=== PATIENT | female | born 1995 | race Caucasian/White ===

== ENCOUNTER 2016-11-18 19:21 | Emergency (ER) | payer OTHER ==
[2016-11-18] MEDS ORDERED: ONDANSETRON 4 MG/2 ML VIAL ONE (19:50)
[2016-11-18] MEDS: NS 1,000 ML IV ONE (20:00)
[2016-11-18] MEDS: ONDANSETRON 4 MG/2 ML VIAL IVP ONE ×2 (20:00→22:19)
--- NOTE | 2016-11-18 20:09 | EDPHY ---
H & P Time Seen by Provider: 11/18/16 20:04 HPI/ROS: CHIEF COMPLAINT: Fever HISTORY OF PRESENT ILLNESS: This patient is a 21 year old female who presents to the Emergency Department complaining of acute onset high fever (102F) beginning at approximately 1900 today. She reports that she experienced acute crushing pains bilaterally to both sides of her lower chest while studying in the library. The pain resolved on its own over time. When she returned home from class, she began to feel chills before becoming acutely feverish. Upon arrival, she also complains of mild headache and diffuse body aches. She denies cough, shortness of breath, or sore throat. She had an IUD placed on Tuesday; no pelvic pain, dysuria or associated complaints. She did have a flu shot this year. REVIEW OF SYSTEMS: Constitutional: +fever, +chills, +body aches Eyes: No visual changes ENT: No sore throat Respiratory: No cough, no shortness of breath Cardiac: No chest pain Gastrointestinal: +nausea, no vomiting, no abdominal pain Genitourinary: No hematuria, no dysuria Musculoskeletal: No leg pain or swelling Skin: No rash Neurological: +mild headache, no numbness, no weakness Psychiatric: No depression Past Medical/Surgical History: Denies. Social History: [employer] student. Dad at bedside. Smoking Status: Never smoked Physical Exam: General Appearance: Alert, non-toxic Eyes: Pupils equal and round, no conjunctival pallor or injection ENT, Mouth: Mucous membranes moist, no pharyngeal erythema Neck: Normal inspection, supple Respiratory: Lungs are clear to auscultation Cardiovascular: Regular rate and rhythm Gastrointestinal: Abdomen is soft and non-tender Back: no CVAT Neurological: A&O, nonfocal exam Skin: Warm and dry, no rash Extremities: Nontender, no pedal edema Psychiatric: Mood and affect normal Constitutional: Initial Vital Signs Temperature (C) 39.4 C H 11/18/16 19:31 Heart Rate 125 H 11/18/16 19:31 Respiratory Rate 20 11/18/16 19:31 Blood Pressure 130/79 H 11/18/16 19:31 O2 Sat (%) 97 11/18/16 19:31 O2 Delivery Mode Room Air Allergies/Adverse Reactions: No Known Allergies Allergy (Unverified 11/18/16 19:31) Home Medications: Medication Instructions Recorded Cefdinir [Omnicef (*)] 300 mg PO BID #20 cap 11/18/16 Ondansetron Odt [Zofran Odt 4 mg 4 mg PO Q4 PRN #6 tab 11/18/16 (*)] Medical Decision Making ED Course/Re-evaluation: IV established. 4mg IV Zofran and 1L IV NS administered. 800mg PO Tylenol administered for fever. Plan for labs, including flu screen, and UA. Flu screen is negative. Labs are unremarkable. UA is positive for UTI. Urine cx sent. I discussed UA and lab results with the patient. She is feeling better following administration of Tylenol. She will be given 1 gram IV Rocephin and sent home with course of Omnicef to treat UTI. She understands return precautions and will be discharged home in good condition. Differential Diagnosis: includes though not limited to influenza, pneumonia, viral syndrome, meningitis , sinusitis - Data Points Laboratory Results: Laboratory Results 11/18/16 19:45 Medications Given: Discontinued Medications Acetaminophen (Tylenol) 650 mg PO EDNOW ONE Stop: 11/18/16 20:22 Last Admin: 11/18/16 20:30 Dose: 650 mg Sodium Chloride (Ns) 1,000 mls @ 0 mls/hr IV ONCE ONE PRN Reason: Wide Open Stop: 11/18/16 19:55 Last Admin: 11/18/16 20:00 Dose: 1,000 mls Ceftriaxone Sodium/Dextrose (Rocephin 1 Gm (Premix)) 50 mls @ 100 mls/hr IV EDNOW ONE PRN Reason: Protocol Stop: 11/18/16 21:56 Last Admin: 11/18/16 21:50 Dose: 50 mls Ondansetron HCl (Zofran) 4 mg IVP EDNOW ONE Stop: 11/18/16 19:55 Last Admin: 11/18/16 20:00 Dose: 4 mg Ondansetron HCl (Zofran) 4 mg IVP EDNOW ONE Stop: 11/18/16 21:47 Last Admin: 11/18/16 22:19 Dose: Not Given Departure - Departure Disposition: Home, Routine, Self-Care Clinical Impression: Pyelonephritis Condition: Good Instructions: Fever in Adults (ED), Urinary Tract Infection in Women (ED) Additional Instructions: 1. Alternate 450mg Ibuprofen and 600mg Tylenol every 4-6 hours as needed for fever. 2. Take the full course of Omnicef as prescribed to treat your UTI. 3. Follow-up with your primary care provider for reevaluation if your symptoms do not subside in 3-5 days. 4. Return to the Emergency Department with uncontrollable high fever, severe abdominal or flank pain, blood in your urine, or other serious concerns. Referrals: GIOVANNI MABRY MD [Other] - As per Instructions Stand Alone Forms: School Excuse Prescriptions: Cefdinir [Omnicef (*)] 300 mg PO BID #20 cap Ondansetron Odt [Zofran Odt 4 mg (*)] 4 mg PO Q4 PRN #6 tab PRN Reason: Nausea Report Scribed for: Basilia Castellanos Report Scribed by: Kimberlyn Hernandez Date of Report: 11/18/16 Time of Report: 20:09
[2016-11-18 20:26] LABS: % IMMATURE GRANULYOCYTES 0.2 % (0.0-1.1); ABSOLUTE IMMATURE GRANULOCYTES 0.01 10^3/uL (0.00-0.10); ADD DIFF? NO; ADD MORPH? NO; ADD SCAN? NO; ATYPICAL LYMPHOCYTE FLAG 0 (0-99); FRAGMENT RBC FLAG 0 (0-99); HEMATOCRIT 42.1 % (38.0-47.0); HEMOGLOBIN 14.4 g/dL (12.6-16.3); LEFT SHIFT FLG 20 (0-99); LIPEMIA HEMOLYSIS FLAG 90 (0-99); MEAN CELL HEMOGLOBIN 30.6 pg (27.9-34.1); MEAN CELL HEMOGLOBIN CONCENTR. 34.2 g/dL (32.4-36.7); MEAN CELL VOLUME 89.4 fL (81.5-99.8); MEAN PLATELET VOLUME 11.1 fL (8.7-11.7); PLATELET CLUMPS FLAG 20 (0-99); PLATELET COUNT 152 10^3/uL (150-400); RED BLOOD CELL COUNT 4.71 10^6/uL (4.18-5.33); RED CELL DISTRIBUTION WIDTH 13.1 % (11.5-15.2)
[2016-11-18] MEDS: ACETAMINOPHEN 325 MG TAB PO ONE (20:30)
[2016-11-18 20:40] VITALS: RESP 16
[2016-11-18 21:16] LABS: COLOR YELLOW; LEUKOCYTE ESTERASE,URINE 1+ (NEGATIVE); NITRITE,URINE NEGATIVE (NEGATIVE)
[2016-11-18 21:23] LABS: BACTERIA 1+ /hpf (NONE SEEN); MUCUS TRACE /lpf (NONE-1+); WBC,URINE 50-182 /hpf (0-3)
[2016-11-18 22:28] VITALS: BP 121/64; PULSE 87; TEMP 98.8; O2SAT 98
== END 2016-11-18 22:29 | disposition home or self-care (01) ==
DX: N12 Tubulo-interstitial nephritis, not specified as acute or chronic (principal)
CPT/HCPCS: 96365; J0696; J2405